=== PATIENT | male | born 1945 | race Two or more races ===

== ENCOUNTER 2018-04-03 19:51 | Inpatient (IN) | payer BC, MEDICAID, OTHER ==
[~2018-04-03] VITALS: Ht 177.8 cm; Wt 69.6 kg
[2018-04-03] MEDS ORDERED: VALP250S3 PO (20:17)
[2018-04-03] MEDS ORDERED: ZONI100C6 PO (20:17)
--- NOTE | 2018-04-03 20:30 | NUR ---
PT REFUSED BLOOD WORK AND IV SALINE LOCK. AWARE.
[2018-04-03 20:43] LABS: *BILIRUBIN,URIN NEGATIVE (NEGATIVE); *BLOOD, URINE NEGATIVE (NEGATIVE); *CLARITY,URINE CLEAR (CLEAR); *COLOR,URINE YELLOW (YELLOW); *KETONES,URINE NEGATIVE (NEGATIVE); *PROTEIN,URINE NEGATIVE (NEGATIVE); *UROBILINOGEN,URINE 0.2 E.U./dl (NORMAL); LEUKOCYTE ESTERASE ,URINE NEGATIVE (NEGATIVE); NITRITE, URINE NEGATIVE (NEGATIVE); UGLUCOSE NEGATIVE (NEGATIVE)
[2018-04-03 20:48] LABS: BACTERIA,URINE NONE SEEN /HPF (NONE SEEN); RBC,URINE 0-3 /HPF (0-3); SQUAMOUS EPITHELIAL CELL,UR NONE SEEN /HPF (NONE SEEN); WBC,URINE 0-3 /HPF (0-3)
--- NOTE | 2018-04-03 21:20 | NUR ---
PT FINISHED EATING DINNER.
--- NOTE | 2018-04-03 22:50 | NUR ---
Pt. admitted to MED SURG , under care of Dr. SAN Diagnosis: Abdominal Pain Belongs List completed. MRSA swab done. Report given to Barron RAMSEY.
[2018-04-03 23:15] VITALS: BP 116/53
--- NOTE | 2018-04-03 23:20 | NUR ---
RECEIVED REPORT FROM JAE FONSECA RN. PT ARRIVED ON MED SURG FLOOR AT 2310 VIA GURNEY. NO COMPLAINTS AT THIS TIME, STABLE. PT IS DNR. PT ARRIVED WITH NO IV ACCESS. SEIZURE PRECAUTIONS OBSERVED.
[2018-04-03] MEDS ORDERED: HYDROCODONE/APAP 5-325MG TABLET PO PRN (23:45)
[2018-04-03] MEDS ORDERED: ONDANSETRON 4 MG/2 ML VIAL IV PRN (23:45)
[2018-04-03] MEDS ORDERED: ACETAMINOPHEN 325 MG TABLET PO PRN (23:45)
[2018-04-03] MEDS ORDERED: MAGNESIUM HYDROXIDE 30 ML LIQUID UDC PO PRN (23:45)
[2018-04-03] MEDS ORDERED: ZOLPIDEM 5 MG TABLET PO PRN (23:45)
[2018-04-03] MEDS ORDERED: Z GUARD REMEDY PASTE 57 GM TUBE TOP PRN (23:45)
--- NOTE | 2018-04-04 00:15 | NUR ---
IV ACCESS ESTABLISHED IN RIGHT FOREARM, 20G.
[2018-04-04] MEDS: IV NS 1000 ML 1,000 ML IV PRN ×2 (00:16→13:34)
[2018-04-04 04:00] VITALS: BP 113/66
--- NOTE | 2018-04-04 05:25 | NUR ---
PT REFUSED LAB DRAW. EXPLAINED RISKS AND BENEFITS RE LAB DRAW. OFFERED X3, PT STILL REFUSED. REQUESTED WOODEN FENCE ERECTOR TO TRY AGAIN LATER IN THE MORNING.
--- NOTE | 2018-04-04 06:09 | NUR ---
PT RESTING IN BED. NO PAIN, NO SOB, NO COUGH. IV FLUIDS INFUSING AT 75 ML/HR. IV FLUIDS WELL TOLERATED.
--- NOTE | 2018-04-04 07:21 | NUR ---
SHIFT REPORT GIVEN TO ROXY BAEZ.
--- NOTE | 2018-04-04 08:00 | NUR ---
ALERT AND VERBALLY RESPONSIVE REQUESTING TO GO TO THE BATHROOM ASSISTED USING THE FRONT WHEEL WALKER WITH SLOW STEADY GAIT.DENIES PAIN OR DISCOMFORTS AT THIS TIME IVF IS IN PROGRESS ORDERED AND WILL CONTINUE TO OBSERVE.
[2018-04-04] MEDS ORDERED: SWABABLE VALVE TRANSFER SET EA MC ONE (10:31)
[2018-04-04] MEDS ORDERED: BARIUM SULFATE 450 ML ORAL.SUSP ONE (10:32)
[2018-04-04] MEDS ORDERED: IOHEXOL 300MG/ML 100 ML INFUS..BTL ONE (10:32)
[2018-04-04] MEDS ORDERED: IV NORMAL SALINE 100 ML ONE (10:32)
[2018-04-04 11:24] LABS: BASOPHILS % (AUTO) 0.7 % (0.0-2.0); EOSINOPHILS # (AUTO) 0.2 K/uL (0.0-0.7); HEMATOCRIT 38.6 % (36.7-47.1); LYMPHOCYTES # (AUTO) 1.1 K/uL (20.0-40.0); LYMPHOCYTES % (AUTO) 20.8 % (20.5-51.5); MEAN CORPUSCULAR HEMOGLOBIN 29.6 uug (23.8-33.4); MEAN CORPUSCULAR HGB CONC 34 g/dL (32.5-36.3); MEAN CORPUSCULAR VOLUME 87.9 fL (73.0-96.2); MONOCYTES # (AUTO) 0.6 K/uL (2.0-10.0); MONOCYTES % (AUTO) 11.8 % (0.0-11.0); NEUTROPHILS # (AUTO) 3.5 K/uL (1.8-8.9); NEUTROPHILS % (AUTO) 62.7 % (38.5-71.5); PLATELET COUNT (AUTO) 153 K/uL (152-348); RED BLOOD CELL COUNT(AUTO) 4.39 MIL/uL (4.06-5.63); WHITE BLOOD COUNT (AUTO) 5.5 K/uL (3.6-10.2)
[2018-04-04 11:38] LABS: CARBON DIOXIDE 27 mmol/L (21-32); CHLORIDE 103 mmol/L (98-107); CREATININE 1.1 mg/dL (0.6-1.3); GLUCOSE 94 mg/dL (74-106); MAGNESIUM 1.8 mg/dL (1.8-2.4); PHOSPHOROUS 2.7 mg/dL (2.5-4.9); POTASSIUM 3.6 mmol/L (3.5-5.1); UREA NITROGEN, BLOOD 14 mg/dL (7-18)
[2018-04-04 11:52] VITALS: BP 110/70
[2018-04-04] MEDS: VALPROIC ACID 250 MG/5 ML LIQUID UDC PO SCH ×2 (13:34→17:04)
--- NOTE | 2018-04-04 14:19 | NUR ---
ALERT GETS EASILY AGITATED AND SCREAMS AT THE TOP OF HIS VOICE FOR NO REASON VERBALISED NEEDS CT ABDOMEN AND PELVIS COMPLETED ORDERED AND BACK TO BED AWAITING FOR THE RESULTS NO SEIZURE ACTIVITIES AT THIS TIME PATIENT MADE COMFORTABLE AND WILL CONTINUE TO OBSERVE AND PROVIDE SAFE AND THERAPEUTIC ENVIRONMENT AT ALL TIMES.
[2018-04-04 15:23] VITALS: BP 128/73
--- NOTE | 2018-04-04 15:30 | NUR ---
RESULTS OF THE CT SCAN OF THE ABDOMEN AND PELVIS RECEIVED FROM THE RADIOLOGY AND DR SAN NOTIFIED STATED OK WILL REVIEW AND ACT ACCORDINGLY
--- NOTE | 2018-04-04 17:58 | NUR ---
PATIENT IS RESTING DENIES DISCOMFORTS WITH NO SEIZURE ACTIVITIES COMPLIANT WITH ALL HIS MEDICATIONS.
--- NOTE | 2018-04-04 19:30 | NUR ---
ALERT ORIENTED, NO SOB NO CHEST PAIN, DENIES PAIN AT THIS TIME, USES URINAL FOR BLADDER ELIMINATION, CONT TO MONITOR, CALL LIGHT WITHIN REACH.
[2018-04-04 20:00] VITALS: BP 119/74
[2018-04-04] MEDS ORDERED: ZONISAMIDE 100 MG CAPSULE PO SCH (21:00)
[2018-04-05 04:38] VITALS: BP 130/59
[2018-04-05] MEDS: IV NS 1000 ML 1,000 ML IV PRN (05:55)
--- NOTE | 2018-04-05 06:27 | NUR ---
PATIENT SLEPT MOST OF THE NIGHT, NO COMPLAIN OF PAIN, CONTINENT OF BLADDER. NO SOB NO CHEST PAIN, CONT TO MONITOR.
--- NOTE | 2018-04-05 07:30 | NUR ---
Rec'd pt in bed, awake and watching TV. No s/s of acute distress noted. Pt Bahamian speaking only. Able to communicate basic needs. A&O x2. On RA, tolerating well at 96%O2Sat. Receiving NS @75ml/hr IVF to right arm 22g IV site. No s/s of complications to IV site. Noted with good urine output, able to use urinal as needed. Denies weakness or pain at this time. Will continue to monitor.
[2018-04-05 08:00] VITALS: BP 129/56
[2018-04-05] MEDS: VALPROIC ACID 250 MG/5 ML LIQUID UDC PO SCH ×3 (08:25→17:27)
--- NOTE | 2018-04-05 09:20 | NUR ---
Pt seen and examined by Dr. Knapp with staff member to translate. Pt Scottish speaking only. Pt verbalized to MD that he wants to walk down the bridge into the water and end his life. New order for Psych consult for positive suicidal ideations. Per MD, pt is medically clear at this time. Notified Dr. Alvarez. Pt in bed at this time. Watching TV. Contracted for safety. Denies having an active plan of "ending his life." Will monitor closely.
--- NOTE | 2018-04-05 09:36 | NUR ---
Rec'd call from Dr. Alvarez. Per , he notified [facility] staff to contact Intake to come and assess pt for possible [id number] Hold. Staff made aware.
[2018-04-05 11:16] VITALS: BP 140/71
--- NOTE | 2018-04-05 12:04 | NUR ---
Pt in bed awake, no s/s of acute distress noted. Denies pain. Denies SI/HI at this time, contracted for safety. Communicating basic needs. Call light within reach. Will continue to monitor closely.
[2018-04-05 15:15] VITALS: BP 147/67
[2018-04-05 15:20] LABS: *AMPHETAMINE, URINE NEGATIVE (NEGATIVE); *BARBITURATE, URINE NEGATIVE (NEGATIVE); *CANNABINOID, URINE NEGATIVE (NEGATIVE); *COCCAINE, URINE NEGATIVE (NEGATIVE); *OPIATE, URINE NEGATIVE (NEGATIVE); *PHENCYCLIDINE SCREEN,URINE NEGATIVE (NEGATIVE)
--- NOTE | 2018-04-05 16:51 | NUR ---
Pt for transfer to [facility]. Spoke to ROXY Salomon @ and gave full SBAR report. Transportation will be arranged for 7pm P/U. Pt made aware.
--- NOTE | 2018-04-05 19:25 | NUR ---
Pt left hospital via gurney accompanied by [facility] staff x2. Endorsed pt to [facility] staff, report given. Discharge summary, instructions, and belongings with pt. IV site removed. Refused to remove ID band. Left in fair condition. Denies SI, CFS.
== END 2018-04-05 19:35 | DRG 422 ==
LOC: ER 19:56 → EDBD 22:57 → MED 22:57
PROVIDERS: ADMIT Internal Medicine; ATTEND Internal Medicine
DX: E86.0 Dehydration (principal); R45.851 Suicidal ideations; F03.90 Unspecified dementia, unspecified severity, without behavioral disturbance, psychotic disturbance, mood disturbance, and anxiety; R53.1 Weakness; G40.909 Epilepsy, unspecified, not intractable, without status epilepticus; F32.9 Major depressive disorder, single episode, unspecified; Z66 Do not resuscitate; R59.0 Localized enlarged lymph nodes; I73.9 Peripheral vascular disease, unspecified; K22.8 Other specified diseases of esophagus; K31.89 Other diseases of stomach and duodenum
CPT/HCPCS: 36415; 71045; 80164; 80307; 83735; 84100; 85025; 87086; 93005; A4663; J3490; J7030; J8499; Q9951; Q9967